=== PATIENT | female | born 1975 | race African-American/Black ===

== ENCOUNTER 2020-03-29 09:48 | Inpatient (IN) | payer OTHER, SELFPAY ==
[2020-03-29] MEDS ORDERED: Oxymetazoline HCl 0.05% (30 ML BOT) ONE (10:29)
[2020-03-29] MEDS ORDERED: Amlodipine 5 MG TAB ONE (11:11)
[2020-03-29] MEDS ORDERED: Amlodipine 5 mg/Benazepril 10 mg CAP PO SCH (11:45)
--- NOTE | 2020-03-29 12:04 | PDOC.HHP ---
Hospitalist HPI - History of Present Illness Nosebleed History of Present Illness: PCP: None The patient is a 44-year-old female with no significant past medical history that presents to the emergency department via EMS for the above complaint. The patient reports waking up this morning and feeling like she was swallowing liquid. She noticed that she was bleeding from her left nostril. She reports that she attempted to control the bleed by pinching her nose. When this was unsuccessful, she called EMS. Upon EMS arrival, the patient was noted to have an elevated BP, the patient reports it was SBP 170s. EMS was able to control the bleed with pressure. Patient reports that it resolved for approximately 30 minutes, then returned. Patient was subsequently taken to the emergency department for further evaluation. The patient reports an associated headache for the past 2 to 3 days. Headache was located frontal, described as aching, exacerbated and relieved by nothing. She had attempted ibuprofen 400 mg x 1 dose, with no success or relief of her symptoms. She denies any family history of a coagulopathy. She is not taking any blood thinners. Denies any bruising or ecchymosis. She denies any recent trauma. She has no URI symptoms. Denies any chest pain, S OB, lightheadedness. Denies any hematemesis, hematochezia or melena. Denies any hematuria. LMP 1 month, sexually active, denies . ED Course: VITAL SIGNS [place] Mar 29, 2020 09:50 LAZARUS Luna Dannette BP: 172/121, Pulse: 85, Resp: 19, Temp: 98.5 (Oral), Pain: 0, O2 sat: 99 on (Room Air), Time: 03/29/2020 09:50. VITAL SIGNS [place] Mar 29, 2020 10:10 LAZARUS Dickey Cheryl BP: 166/124, MAP: 138, Pulse: 87, Resp: 18, Pain: 0, O2 sat: 97 on (Room Air), Time: 03/29/2020 10:10. VITAL SIGNS [place] Mar 29, 2020 11:29 LAZARUS Dickey Cheryl BP: 216/123, Pulse: 80, Resp: 18, Temp: 98.3 (Oral), Pain: 0, O2 sat: 100 on (Room Air), Time: 03/29/2020 11:29. Afrin x2 attempts to control the bleed was unsuccessful. Rhino Rocket was installed. The patient's BP shot up to 223/140. Medication administration: hydrALAZINE injection 20 mg IV Push Acknowledged 11:53 03/29/2020 Afrin (oxymetazoline) 4 spray(s) Nares Both Given 10:55 03/29/2020 Hospitalist ROS - Review of Systems Constitutional: denies: fever, chills ENT: reports: nose discharge. denies: ear pain, ear discharge, nose pain, nose congestion, mouth pain, mouth swelling, throat pain Respiratory: denies: cough, shortness of breath Cardiovascular: denies: chest pain, palpitations, edema, light headedness Gastrointestinal: denies: nausea, vomiting, abdominal pain, diarrhea Musculoskeletal: denies: neck pain Neurological: denies: weakness, change in speech All other systems reviewed; all pertinent +/- noted in HPI/Subj - Medication Medications: None Allergies: No known drug allergies Hospitalist History - Past Medical History Source: patient, RN notes reviewed Cardiac: reports: no pertinent history Pulmonary: reports: no pertinent history - Past Surgical History Past Surgical History: reports: - Family History Family History: reports: no pertinent history Other Family History: Noncontributory to this case - Social History Smoking Status: Never smoker Alcohol: reports: None Drugs: reports: none Living Situation: With Family Activity level: independent ambulation - Exam General Appearance: NAD, awake alert. negative: ill appearing Eye: PERRL, anicteric sclera ENT: normocephalic atraumatic Neck: supple, symmetric, no JVD Heart: RRR, no gallops, no rubs, normal peripheral pulses, II/IV Respiratory: CTAB, no wheezes, no rales, no ronchi, normal chest expansion, no tachypnea Gastrointestinal: soft, non-tender, non-distended, normal bowel sounds, no bruit, no guarding, no rigidity Extremities: no cyanosis, no edema Skin: no rashes Neurological: cranial nerve grossly intact, no focal deficits Musculoskeletal: normal tone, normal strength Psychiatric: normal affect, A&O x 3 Hospitalist Results - Labs Result Diagrams: 03/29/20 12:08 03/29/20 12:08 Hospitalist H&P A/P - Problem (1) Hypertensive emergency Code(s): I16.1 - HYPERTENSIVE EMERGENCY Status: Acute (2) Epistaxis Code(s): R04.0 - EPISTAXIS Status: Acute - Plan Plan: 44/F with no significant past medical history presents to emergency department for nosebleed. Admit to telemetry, observation status. Expected length of stay less than 2 midnights. Presented BP 172/121, NL HR, RR, SPO2, afebrile. Unsuccessful attempt to control blood pressure with Afrin x2. ER MD inserted Rhino Rocket to left nare with control of bleed. BP elevated to 223/140 status post Rhino Rocket and afrin administration. Given hydralazine IVP. General labs ordered. Consulted ENT, Dr. Ahumada. #Hypertensive emergency Given hydralazine IVP x1 in ER. General labs pending. Add hcg. Continue hydralazine PRN. Continue to monitor BP. Currently 180s/120s. We will start the patient on Procardia XL. #Epistaxis Controlled with Rhino Rocket to left nare. CBC and PT/INR pending. Dr. Ahumada (ENT) agreed to see patient tomorrow. Orthostatic VS. Avoid NSAIDs and anticoagulants. No pharmacological DVT prophylaxis. SCDs for DVT prophylaxis. No GI prophylaxis. Full code. Discussed case with Dr. Mckeon.
[2020-03-29 12:22] LABS: #Lymphocytes 2.9 thou/uL (1.20-3.40); #Monocytes 0.5 thou/uL (0.11-0.59); #Neutrophils 5.8 thou/uL (1.40-6.50); %Basophils 0.5 % (0.0-1.0); %Eosinophils 0.2 % (0.0-10.0); %Lymphocytes 30.9 % (21.0-51.0); %Monocytes 5.2 % (0.0-10.0); %Neutrophils 63.3 % (42.0-75.0); Hemoglobin 10.8 g/dL (12.0-16.0); Mean Corpuscular HGB CONC 34.8 g/dL (32.0-36.0); Mean Corpuscular Hemoglobin 31.1 pg (27.0-31.0); Mean Corpuscular Volume 89.5 fL (78.0-98.0); Mean Platelet Volume 9.1 fL (7.4-10.4); Platelet Count 264 thou/uL (130-400); RBC Distribution Width 14.5 % (11.5-14.5); Red Blood Cell (RBC) Count 3.47 mill/uL (4.20-5.40); White Blood Cell (WBC) Count 9.2 thou/uL (4.8-10.8)
[2020-03-29 12:23] LABS: Prothrombin Time 13.3 sec (12.0-14.7)
[2020-03-29] MEDS ORDERED: Labetalol HCl 100 MG/20 ML VIAL ONE (12:23)
[2020-03-29] MEDS ORDERED: Nitroglycerin 2% Ointment 1 INCH/1 GM Packet ONE (12:23)
[2020-03-29] MEDS ORDERED: Ondansetron ODT 4 MG TAB PO PRN (12:28)
[2020-03-29] MEDS ORDERED: Ondansetron PF 4 MG/2 ML Vial IVP PRN (12:28)
[2020-03-29] MEDS ORDERED: Oxymetazoline HCl 0.05% (30 ML BOT) NS SCH (12:30)
[2020-03-29] MEDS ORDERED: hydrALAZINE 20 MG/ML VIAL SLOW IVP PRN (12:30)
[2020-03-29 12:37] LABS: ALT (SGPT) Less than 7 U/L (8-55); AST (SGOT) 11 U/L (5-34); Albumin 3.9 g/dL (3.5-5.0); Alkaline Phosphatase 55 U/L (40-110); Anion Gap 10 mmol/L (10-20); BUN (Urea Nitrogen) 14 mg/dL (7.0-18.7); Bilirubin, Total 0.5 mg/dL (0.2-1.2); Calc. Creatinine Clearance 0 mL/min (70-130); Calcium 8.5 mg/dL (7.8-10.44); Carbon Dioxide 22 mmol/L (22-29); Chloride 111 mmol/L (98-107); Estimated GFR-MDRD Greater than 90; Globulin 3.1 g/dL (2.4-3.5); Glucose 101 mg/dL (70-105); Sodium 139 mmol/L (136-145)
[2020-03-29 12:40] LABS: PTT 22.7 sec (22.9-36.1)
[2020-03-29 13:55] LABS: BHCG - Serum Negative (NEGATIVE); Pregs Control Background? CLEAR/WHITE (CLR/WHITE); Pregs Control Bar Appear? YES (CONTROL BAR)
[2020-03-29] MEDS ORDERED: NIFEdipine XL 30 MG TAB PO SCH (14:00)
[2020-03-29 14:23] VITALS: BMI 32.1
[2020-03-29] MEDS: Acetaminophen 325 MG TAB PO PRN ×2 (15:14→19:51)
[2020-03-29] MEDS ORDERED: Labetalol HCl 100 MG/20 ML VIAL SLOW IVP PRN (18:17)
[2020-03-29] MEDS ORDERED: Labetalol HCl 100 MG/20 ML VIAL SLOW IVP SCH ×2 (18:30)
[2020-03-29] MEDS: Famotidine/PF 20 mg/2ml Vial SLOW IVP SCH (19:51)
[2020-03-29] MEDS ORDERED: HYDROcodone/Acetaminophen 5/325 mg Tablet PO SCH (21:15)
[2020-03-29 23:33] LABS: Hemoglobin 9.1 g/dL (12.0-16.0)
[2020-03-30] MEDS: Famotidine/PF 20 mg/2ml Vial SLOW IVP SCH ×3 (00:03→20:46)
[2020-03-30] MEDS: HYDROcodone/Acetaminophen 5/325 mg Tablet PO PRN ×3 (04:25→19:08)
[2020-03-30 05:11] LABS: #Basophils 0.1 thou/uL (0.0-0.2); #Monocytes 0.6 thou/uL (0.11-0.59); #Neutrophils 7.9 thou/uL (1.40-6.50); %Basophils 0.6 % (0.0-1.0); %Eosinophils 0.1 % (0.0-10.0); %Lymphocytes 25.6 % (21.0-51.0); %Monocytes 5.4 % (0.0-10.0); %Neutrophils 68.3 % (42.0-75.0); Hemoglobin 9.2 g/dL (12.0-16.0); Mean Corpuscular HGB CONC 34.5 g/dL (32.0-36.0); Mean Corpuscular Volume 89.9 fL (78.0-98.0); Mean Platelet Volume 8.7 fL (7.4-10.4); Platelet Count 243 thou/uL (130-400); RBC Distribution Width 14.3 % (11.5-14.5); Red Blood Cell (RBC) Count 2.95 mill/uL (4.20-5.40); White Blood Cell (WBC) Count 11.6 thou/uL (4.8-10.8)
[2020-03-30 05:41] LABS: Anion Gap 12 mmol/L (10-20); BUN (Urea Nitrogen) 15 mg/dL (7.0-18.7); Calc. Creatinine Clearance 121 mL/min (70-130); Calcium 8.1 mg/dL (7.8-10.44); Carbon Dioxide 21 mmol/L (22-29); Chloride 107 mmol/L (98-107); Estimated GFR-MDRD Greater than 90; Glucose 105 mg/dL (70-105); Potassium 3.7 mmol/L (3.5-5.1); Sodium 136 mmol/L (136-145)
[2020-03-30] MEDS: NIFEdipine XL 30 MG TAB PO SCH (10:16)
[2020-03-30 11:34] LABS: SARS-CoV-2 MS2 Positive; SARS-CoV-2 N Gene Negative; SARS-CoV-2 S Gene Negative; SARS-CoV-2 by NAA Not Detected (NotDetected); SARS-CoV-2 orf1ab Negative
[2020-03-30] MEDS ORDERED: NIFEdipine XL 30 MG TAB PO SCH (13:45)
[2020-03-30] MEDS ORDERED: Hydrochlorothiazide 25 MG TAB PO SCH (16:45)
--- NOTE | 2020-03-30 18:24 | PDOC.HOSPP ---
- Subjective Encounter Date: 03/30/20 Encounter Time: 08:00 Subjective: The patient states her epistaxis has resolved after placement of rhinorocket She reports headaches on the left side of her head for months, stated they would radiate down to her jaw. This was associated with photophobia but no nausea. They would self resolve after laying down . She denies history of high blood pressure in the past - Objective Vital Signs & Weight: Vital Signs (12 hours) Temp Pulse Resp BP BP BP Pulse Ox 03/30/20 15:20 98.3 F 86 16 159/100 H 99 03/30/20 12:32 88 169/107 H 03/30/20 11:23 98.7 F 82 16 161/69 H 100 03/30/20 08:00 98.2 F 109 H 18 149/100 H 152/103 H 157/109 H 99 Weight Weight 186 lb 14.4 oz I&O: 03/29/20 03/30/20 03/31/20 06:59 06:59 06:59 Intake Total 920 Output Total 700 Balance 920 -700 Result Diagrams: 03/30/20 04:56 03/30/20 04:56 Hospitalist ROS - Review of Systems Constitutional: denies: fever, chills - Medication Medications: Active Medications Generic Name Dose Route Start Last Admin Trade Name Bradyq PRN Reason Stop Dose Admin Acetaminophen 650 mg 03/29/20 12:28 03/29/20 19:51 Acetaminophen 325 Mg Tab PO 650 mg Q4H PRN Administration Headache/Fever/Mild Pain (1-3) Hydrocodone Bitart/Acetaminophen 1 tab 03/30/20 03:38 03/30/20 12:33 Hydrocodone/Acetaminophen 5/325 Mg Tablet PO 1 tab Q4H PRN Administration Moderate to Severe Pain (4-10) Famotidine 20 mg 03/29/20 21:00 03/30/20 10:16 Famotidine/Pf 20 Mg/2ml Vial SLOW IVP 20 mg Q12HR LYNNE Administration Hydrochlorothiazide 12.5 mg 03/30/20 16:45 03/30/20 17:54 Hydrochlorothiazide 25 Mg Tab PO 03/30/20 18:45 12.5 mg NOW LYNNE Administration Nifedipine 30 mg 03/30/20 09:00 03/30/20 10:16 Nifedipine Xl 30 Mg Tab PO 30 mg DAILY LYNNE Administration Sodium Chloride 10 ml 03/29/20 12:28 03/30/20 10:16 Flush - Normal Saline 10 Ml Syringe IVF 10 ml PRN PRN Administration Saline Flush - Exam General Appearance: NAD, awake alert Eye: PERRL, anicteric sclera ENT: normocephalic atraumatic, no oropharyngeal lesions Neck: no JVD Heart: RRR, no murmur, no gallops, no rubs Respiratory: CTAB, no wheezes, no rales, no ronchi Gastrointestinal: soft, non-tender, non-distended, normal bowel sounds Extremities: no cyanosis, no clubbing, no edema Skin: normal turgor, no lesions, no rashes Neurological: cranial nerve grossly intact, normal sensation to touch, no weakness, no new deficit Musculoskeletal: normal tone, normal strength, no muscle wasting Psychiatric: A&O x 3 Hosp A/P - Plan This is a 44 year old female with no past medical history who presented with epistaxis, found to be hypertensive Hypertensive urgency - started on nifedipine 30 mg. Gave extra 30 mg, will increase to 60 mg - added hydrochlorothiazide 12.5 mg daily Epistaxis- resolved - currently has rhinorocket in place by ENT Leukocytosis - WBC up to 11.6, likely reactive - check chest x ray and UA Anemia - likely blood loss - hemoglobin down to 9.2, will trend
--- NOTE | 2020-03-30 19:04 | RAD ---
PORTABLE CHEST ONE VIEW: Date: 03-30-2020 Time: 6:31 p.m. History: Leukocytosis Comparison: None FINDINGS: The heart size is normal. No focal areas of consolidation, pneumothoraces, or pleural effusions are s een. IMPRESSION: No radiographic evidence of acute cardiopulmonary process. POS: NICKA
[2020-03-30 19:21] LABS: Bacteria/HPF None Seen HPF (None Seen); Bilirubin Negative (Negative); Blood, Urine Negative (Negative); Clarity Clear (Clear); Glucose, Urine (Dipstick) Normal (Negative); Ketone, Urine Negative (Negative); Leukocyte Negative Leu/uL (Negative); Nitrite Negative (Negative); Protein, Urine (Dipstick) Negative (Neg-Trace); RBC/HPF 0-3 HPF (0-3); Specific Gravity, Urine 1.009 (1.002-1.036); Squamous Epithelial 0-3 HPF (0-3); Urobilinogen Normal mg/dL (Less than 2); WBC/HPF 0-3 HPF (0-3); pH, Urine 6.5 (5.0-9.0)
[2020-03-30 19:23] LABS: Urine Culture Reflex No No
[2020-03-31 04:20] LABS: Hemoglobin 9.9 g/dL (12.0-16.0); Mean Corpuscular HGB CONC 32.5 g/dL (32.0-36.0); Mean Corpuscular Hemoglobin 29.2 pg (27.0-31.0); Mean Corpuscular Volume 89.7 fL (78.0-98.0); Mean Platelet Volume 9.1 fL (7.4-10.4); Platelet Count 297 thou/uL (130-400); RBC Distribution Width 14.7 % (11.5-14.5); Red Blood Cell (RBC) Count 3.38 mill/uL (4.20-5.40); White Blood Cell (WBC) Count 12.7 thou/uL (4.8-10.8)
[2020-03-31 04:31] LABS: Iron 31 ug/dL (50-170); Iron Binding Capacity, Total 326 mcg/dL (265-497)
[2020-03-31 05:07] LABS: Ferritin 17.81 ng/mL (10-291)
[2020-03-31] MEDS: NIFEdipine XL 30 MG TAB PO SCH (08:38)
[2020-03-31] MEDS ORDERED: NIFEdipine XL 60 MG TAB PO SCH (09:00)
[2020-03-31] MEDS ORDERED: Famotidine 20 MG TAB PO SCH (09:00)
[2020-03-31] MEDS ORDERED: Hydrochlorothiazide 25 MG TAB PO SCH (09:00)
[2020-03-31] MEDS: HYDROcodone/Acetaminophen 5/325 mg Tablet PO PRN (09:43)
[2020-03-31 11:39] VITALS: BP 127/88; TEMP 98.3
--- NOTE | 2020-04-01 00:41 | DIS ---
DATE OF ADMISSION: 03/29/2020 DATE OF DISCHARGE: 03/31/2020 DISCHARGE DIAGNOSES: 1. Acute epistaxis, likely secondary to hypertensive urgency. 2. Hypertensive emergency 3. Leukocytosis. 4. Anemia. CONSULTATIONS: Dr. Darnell Capps with ENT. PROCEDURE: Rhino Rocket placement. BRIEF HISTORY OF PRESENT ILLNESS: This is a 44-year-old female with no significant past medical history, who presented to the emergency room after she started having epistaxis. She was unable to control her bleeding with pressure. When EMS came, they were able to control it initially, but then it returned. The patient reported chronic headaches on the left side for the past few months. She stated the last time she saw her primary care doctor, her blood pressure was normal. When she presented to the emergency room, her blood pressure was 177/125. Afrin was sprayed with direct pressure x2 with no improvement. The patient was also started on amlodipine and benazepril. ENT was consulted and Rhino Rocket was installed. HOSPITAL COURSE: Epistaxis likely secondary to hypertensive emergency: The patient's blood pressure improved with IV hydralazine. She was started on nifedipine 30 mg. On 03/30, her BP was 140/100. Her nifedipine was increased to 60 mg and she was started on hydrochlorothiazide. The following day, her blood pressure improved to 133/95. Her epistaxis has resolved. I discussed with ENT, who recommended to leave the Rhino Rocket in for a few days. The patient will follow up with ENT on or Monday of this week to have the Rhino Rocket removed. Leukocytosis: The patient had a white count of 9.2, which increased to 12.7 on 03/31. She denied cough, chest pain, dysuria, or abdominal pain. Her UA was unremarkable. Chest x-ray was normal. The patient needs a repeat CBC in a week to evaluate for resolution. Anemia: The patient had a hemoglobin of 9.9. This is possibly secondary to her blood loss. She needs a repeat CBC as an outpatient in a week. DISCHARGE PHYSICAL EXAMINATION: VITAL SIGNS: Temperature 98.3, heart rate 86, respiratory rate normal, O2 saturation 99% on room air, and blood pressure 127/88. GENERAL: The patient is alert, awake, and oriented x3. CVS: Regular rate and rhythm with no murmurs, rubs, or gallops. LUNGS: Clear to auscultation bilaterally. ABDOMEN: Positive bowel sounds, soft, nontender, nondistended. EXTREMITIES: No edema. ENT: The patient has a Rhino Rocket in her left nostril. LABORATORY DATA: 'CBC 03/31: White count 12.7, hemoglobin 9.9, hematocrit 30.3, platelet count 297. BMP 03/30: Normal. LFTs 03/29: Normal. Vitamin B12: 416. Folate: 7.5. Iron panel: Ferritin 17.8, iron saturation 10, iron 31, TIBC 31. IMAGING: Chest x-ray 03/30: Normal. DISCHARGE CONDITION: Stable. ACTIVITY: As tolerated. DIET: Heart healthy diet. DISCHARGE MEDICATIONS: 1. Hydrochlorothiazide 12.5 mg p.o. daily. 2. Potassium chloride 10 mEq p.o. daily p.r.n. 3. Nifedipine 60 mg p.o. daily. DISCHARGE INSTRUCTIONS: The patient is to follow up with her PCP in a week and have a repeat CBC to follow up leukocytosis and hemoglobin to follow up anemia. She should get repeat potassium levels in a week. She should follow up with Dr. Capps on or Monday to have the Rhino Rocket removed. Job ID: [id number] [facility]
--- NOTE | 2020-04-01 06:24 | PQF ---
CLINICAL DOCUMENTATION CLARIFICATION FORM: Dear : Katarzyna Gaffney Date / Time: 04/01/20622 Please exercise your independent, professional judgment in responding to the clarification form. Clinical indicators are provided on the bottom of this form for your review Please check appropriate box(es): Blood loss Anemia Acuity: [ X ] Acute [ ] Acute on Chronic [ ] Chronic [ ] Other diagnosis [ ] Unable to determine Physician Signature: Date/Time: For continuity of documentation, please document condition throughout progress notes and discharge summary. Thank You. To be completed by CDI/Coding staff for physician review: Present Clinical Indicators - Signs / Symptoms / Labs Results and Location in Medical Record [X] BP 190/109, Pulse 69, Resp 16, Temp 98.3 Vital signs 03/29 [X] RBC 3.47;, Hgb 10.8;10.0; , Hct 31.1; 30.0 Laboratory 03/29 [X] RBC 2.95, Hgb 9.2Hct 30.3 Laboratory 03/30 [X] She noticed that she was bleeding from her left nostril H&P p1 03/29 [facility] [X] Epistaxis H&P p4 03/29 [facility] [X] Anemia likely blood loss H&P p4 03/29 [facility] [employer] Present Risk Factors Results and Location in Medical Record [X] HTN emergency H&P p1 03/29 [facility] [employer] Present Treatments Results and Location in Medical Record [X] IVF NS 1L MAR 03/29 [X] Series of Hgb and Hct Laboratory 03/29 [X] Rhino Rocker H&P p1 03/29 [facility] [employer] 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
== END 2020-03-31 13:34 | disposition home or self-care (01) | DRG 305 ==
LOC: ERS 09:48 → OBSVTOIN 12:20 → 2SW 12:20 → 2NO 03-30 19:38
PROVIDERS: ADMIT Student in an Organized Health Care Education/Training Program; ATTEND Student in an Organized Health Care Education/Training Program
PROC: 2Y41X5Z Packing of Nasal Region using Packing Material (ICD-10-PCS; principal; 2020-03-29)
DX: I16.1 Hypertensive emergency (principal); D62 Acute posthemorrhagic anemia; D72.829 Elevated white blood cell count, unspecified; R04.0 Epistaxis; Z20.828 Contact with and (suspected) exposure to other viral communicable diseases; I10 Essential (primary) hypertension
CPT/HCPCS: 36415; 71045; 80048; 80053; 81001; 82607; 82728; 82746; 83540; 83550; 84484; 84703; 85025; 85027; 85610; 85730; 87635; 93005; 94760; 96375; 96376; G0378; S0028; U0003